=== PATIENT | female | born 1985 | race Caucasian/White ===

== ENCOUNTER 2016-04-30 08:59 | Emergency (ER) | payer OTHER ==
--- NOTE | 2016-04-30 09:40 | ER Document Report ---
ED Medical Screen (RME) - General Stated Complaint: BREAST PAIN AND FEVER Notes: onset: 4 days with breast pain. swollen, red fever and vomiting started last evening treated for mastitis last month previous diagnosis with mastitis and abscess of the last breast I have greeted and performed a rapid initial assessment of this patient. A comprehensive ED assessment and evaluation of the patient, analysis of test results and completion of the medical decision making process will be conducted by additional ED providers. TRAVEL OUTSIDE OF THE [place] IN LAST 30 DAYS: No - Related Data Allergies/Adverse Reactions: hydroxyzine HCl [From Vistaril] Allergy (Severe, Verified 09/01/10 09:40) Difficulty breathing hydroxyzine pamoate [From Vistaril] Allergy (Severe, Verified 06/11/14 11:26) diff breathing ketorolac tromethamine [From Toradol] Allergy (Severe, Verified 09/01/10 09:40) Hives Penicillins Allergy (Severe, Verified 09/05/10 07:14) Anaphylaxis Sulfa (Sulfonamide Antibiotics) Allergy (Severe, Verified 09/05/10 07:15) Hives Past Medical History - Past Medical History Cardiac Medical History: Denies: Hx Heart Attack, Hx Hypertension, Hx Pulmonary Embolism, Hx Heart Murmur Pulmonary Medical History: Denies: Hx Asthma, Hx Sleep Apnea, Hx Tuberculosis Neurological Medical History: Denies: Hx Cerebrovascular Accident, Hx Seizures Endocrine Medical History: Denies: Hx Hyperthyroidism, Hx Hypothyroidism Renal/ Medical History: Denies: Hx Kidney Stones, Hx Ovarian Cysts, Hx Pelvic Inflammatory Disease Malignancy Medical History: Denies: Hx Breast Cancer, Hx Cervical Cancer, Hx Ovarian Cancer GI Medical History: Denies: Hx Gastroesophageal Reflux Disease, Hx Hepatitis, Hx Hiatal Hernia, Hx Ulcer Musculoskeltal Medical History: Denies Hx Fibromyalgia Psychiatric Medical History: Reports: Hx Depression Denies: Hx Bipolar Disorder, Hx Post Traumatic Stress Disorder, Hx Schizophrenia Traumatic Medical History: Denies: Hx Fractures Infectious Medical History: Denies: Hx Hepatitis, Hx HIV Past Surgical History: Reports: Hx Appendectomy, Hx Tonsillectomy. Denies: Hx Hysterectomy, Hx Mastectomy, Hx Open Heart Surgery, Hx Pacemaker - Immunizations Hx Diphtheria, Pertussis, Tetanus Vaccination: No - received-unknkown date Physical Exam - Vital signs Vitals: Temp Pulse Resp BP Pulse Ox 98.2 F 78 20 121/77 98 04/30/16 09:14 04/30/16 09:14 04/30/16 09:14 04/30/16 09:14 04/30/16 09:14 Course - Vital Signs Vital signs: Temp Pulse Resp BP Pulse Ox 98.2 F 78 20 121/77 98 04/30/16 09:14 04/30/16 09:14 04/30/16 09:14 04/30/16 09:14 04/30/16 09:14
[2016-04-30] MEDS ORDERED: NAPROXEN 250 MG TABLET PO ONE (09:41)
[2016-04-30] MEDS ORDERED: ONDANSETRON 4 MG TAB.RAPDIS PO ONE (09:43)
--- NOTE | 2016-04-30 11:39 | ER Document Report ---
HPI - HPI Patient complains to provider of: left breast pain Pain Level: 4 Context: patient is a 30 year old female p/w left breast pain. has had mastitis on/off since june. has previously been aspirated and on antibiotics. most recently on abx one month ago. currently, her symptoms have been bothering her for 4 days that have been worse over the past 2 days with nausea. new to the area from [place]. No pcp in the area denies PMH allergies to pcn, bactrim - REPRODUCTIVE Reproductive: DENIES: : - DERM Skin Color: Normal Past Medical History - Social History Smoking Status: Current Every Day Smoker Chew tobacco use (# tins/day): No Frequency of alcohol use: Social Drug Abuse: None Family History: Reviewed & Not Pertinent Patient has suicidal ideation: No Patient has homicidal ideation: No - Past Medical History Cardiac Medical History: Denies: Hx Heart Attack, Hx Hypertension, Hx Pulmonary Embolism, Hx Heart Murmur Pulmonary Medical History: Denies: Hx Asthma, Hx Sleep Apnea, Hx Tuberculosis Neurological Medical History: Denies: Hx Cerebrovascular Accident, Hx Seizures Endocrine Medical History: Denies: Hx Hyperthyroidism, Hx Hypothyroidism Renal/ Medical History: Denies: Hx Kidney Stones, Hx Ovarian Cysts, Hx Peritoneal Dialysis, Hx Pelvic Inflammatory Disease Malignancy Medical History: Denies: Hx Breast Cancer, Hx Cervical Cancer, Hx Ovarian Cancer GI Medical History: Denies: Hx Gastroesophageal Reflux Disease, Hx Hepatitis, Hx Hiatal Hernia, Hx Ulcer Musculoskeltal Medical History: Denies Hx Fibromyalgia Psychiatric Medical History: Reports: Hx Depression Denies: Hx Bipolar Disorder, Hx Post Traumatic Stress Disorder, Hx Schizophrenia Traumatic Medical History: Denies: Hx Fractures Infectious Medical History: Denies: Hx Hepatitis, Hx HIV Past Surgical History: Reports: Hx Appendectomy, Hx Tonsillectomy. Denies: Hx Hysterectomy, Hx Mastectomy, Hx Open Heart Surgery, Hx Pacemaker - Immunizations Hx Diphtheria, Pertussis, Tetanus Vaccination: No - received-unknkown date Vertical Provider Document - CONSTITUTIONAL Agree With Documented VS: Yes Exam Limitations: No Limitations General Appearance: WD/WN, No Apparent Distress - INFECTION CONTROL TRAVEL OUTSIDE OF THE [place] IN LAST 30 DAYS: No - RESPIRATORY Respiratory: Breath Sounds Normal, No Respiratory Distress, Chest Non-Tender. negative: Rales, Rhonchi, Wheezing O2 Sat by Pulse Oximetry: 98 - CARDIOVASCULAR Cardiovascular: Regular Rate, Regular Rhythm, No Murmur Pulses: Normal: Radial - NEURO Level of Consciousness: Awake, Alert, Appropriate Motor/Sensory: No Motor Deficit, No Sensory Deficit - DERM Integumentary: Warm, Dry, No Rash, Abscess - left breast with palpable inflammed area above the aerola within the breast tissue Course - Re-evaluation Re-evalutation: 04/30/16 13:15 patient with breast abscess that she has had drained previously. drained at the bedside for 6ml of material. will d/c patient home on anbiotics and pain medication with f/u with surgery - Vital Signs Vital signs: Temp Pulse Resp BP Pulse Ox 98.2 F 78 20 121/77 98 04/30/16 09:14 04/30/16 09:14 04/30/16 09:14 04/30/16 09:14 04/30/16 09:14 Discharge - Discharge Clinical Impression: Breast abscess Condition: Good Disposition: HOME, SELF-CARE Instructions: Abscess ([facility]), Post Incision and Drainage, Oral Narcotic Medication ([facility]), Clindamycin ([facility]) Prescriptions: Clindamycin HCl 300 mg PO BID 7 Days Tramadol HCl [Ultram 50 mg Tablet] 50 mg PO ASDIR PRN #20 tablet PRN Reason: Referrals: OSCAR CRUZ MD [ACTIVE STAFF] - Follow up as needed
[2016-04-30] MEDS ORDERED: CLINDAMYCIN HCL 150 MG CAPSULE PO ONE (13:08)
[2016-04-30 14:19] VITALS: BP 114/60
== END 2016-04-30 13:40 | disposition home or self-care (01) ==
LOC: ER 08:59
PROC: 0H9UXZZ (ICD-10-PCS; principal; 2016-04-30)
DX: N64.4 Mastodynia (principal); R50.9 Fever, unspecified; Z88.0 Allergy status to penicillin; Z88.2 Allergy status to sulfonamides
CPT/HCPCS: 10060; 99283; 87070; 87205; 87075; 87077; S0119